=== PATIENT | male | born 1935 | race Caucasian/White ===

== ENCOUNTER 2016-08-25 17:02 | Emergency (ER) | payer OTHER, MEDICARE ==
[~2016-08-25] VITALS: Ht 185.4 cm; Wt 86.2 kg
[2016-08-25 19:44] VITALS: BP 189/83
[2016-08-25] MEDS ORDERED: KEFLEX500 MG PO (20:21)
== END 2016-08-25 20:39 | disposition home or self-care (01) ==
LOC: ER 17:02
DX: S92.591A Other fracture of right lesser toe(s), initial encounter for closed fracture (principal); S91.311A Laceration without foreign body, right foot, initial encounter; F10.99 Alcohol use, unspecified with unspecified alcohol-induced disorder; F32.9 Major depressive disorder, single episode, unspecified; E78.00 Pure hypercholesterolemia, unspecified; Z98.890 Other specified postprocedural states; Z87.891 Personal history of nicotine dependence; W22.8XXA Striking against or struck by other objects, initial encounter; Y93.89 Activity, other specified; Y92.89 Other specified places as the place of occurrence of the external cause; Y99.8 Other external cause status

== ENCOUNTER 2019-09-07 15:34 | Inpatient (IN) | payer OTHER, MEDICARE ==
[~2019-09-07] VITALS: Ht 185.4 cm; Wt 73.1 kg
[~2019-09-07 15:34] MED LIST: KEFLEX500 MG PO
[2019-09-07 15:44] VITALS: BP 160/88
[2019-09-07] MEDS ORDERED: LORAZEPAM 0.50.5 MG PO (16:12)
[2019-09-07] MEDS ORDERED: CELEXA 20 MG TA20 MG PO (16:12)
[2019-09-07] MEDS ORDERED: ZOCOR 20 MG TAB20 M1 PO (16:13)
[2019-09-07 17:03] LABS: ABSOLUTE NEUTROPHILS 9.7 thou/uL (1.4-8.2); BASOPHILS 0.7 % (0.0-2.0); EOSINOPHILS 0.1 % (0.0-3.0); HEMATOCRIT 36.7 % (42.0-52.0); HEMOGLOBIN 12.9 gm/dL (14.0-18.0); LYMPHOCYTES 5.5 % (24.0-44.0); MCH 38.9 pg (26.0-34.0); MCHC 35.2 g/dL (28.0-37.0); MCV 110.4 fL (80.0-100.0); MONOCYTES 6.3 % (1.0-8.0); PLATELET COUNT 217 thou/uL (150-400); POLYS 87.4 % (36.0-66.0); RBC 3.33 mil/uL (4.50-6.00); RDW 16.1 % (10.5-14.5); WBC 11.1 thou/uL (4.0-11.0)
[2019-09-07 17:16] LABS: ANION GAP 7 mmol/L (7-16); BUN 19 mg/dL (7-18); CALCIUM 8.9 mg/dL (8.5-10.1); CHLORIDE 96 mmol/L (98-107); CO2 29 mmol/L (21-32); CREATININE 1.2 mg/dL (0.7-1.3); GLUCOSE 144 mg/dL (74-106); POTASSIUM 3.7 mmol/L (3.5-5.1); SODIUM 132 mmol/L (136-145)
[2019-09-07 17:27] LABS: ALBUMIN 2.9 g/dL (3.4-5.0); MAGNESIUM 1.7 mg/dL (1.8-2.4); SGOT 35 U/L (15-37); SGPT 18 U/L (30-65); TOTAL BILIRUBIN 1.5 mg/dL (0.2-1.0); TOTAL PROTEIN 6.7 g/dL (6.4-8.2); TROPONIN-I <0.06 ng/mL (<0.06)
[2019-09-07 17:44] LABS: URINE BILIRUBIN 1+ (Negative); URINE BLOOD 3+ (Negative); URINE CLARITY CLEAR; URINE COLOR YELLOW; URINE GLUCOSE-RANDOM* 2+ (Negative); URINE KETONES 1+ (Negative); URINE LEUKOCYTES-REFLEX TRACE (Negative); URINE NITRITE-REFLEX NEGATIVE (Negative); URINE PROTEIN (DIPSTICK) 1+ (Negative)
[2019-09-07 17:54] LABS: ICTOTEST (BILI CONFIRMATORY) Negative (Negative)
[2019-09-07 17:56] LABS: CASTS None Seen /LPF (None Seen); CRYSTALS None Seen /LPF (None Seen); SQUAMOUS None Seen /LPF (0-3); URINE WBC-REFLEX 0-5 Rare /HPF (0-5)
[2019-09-07 17:57] LABS: BACTERIA-REFLEX 1-9 Few /HPF (None Seen)
[2019-09-07 20:08] VITALS: BP 175/77
[2019-09-07 20:17] VITALS: BP 152/78
[2019-09-07 21:20] VITALS: BP 150/82
--- NOTE | 2019-09-08 03:36 | NUR ---
PATIENT ARRIVED ON UNIT AT 2030 VIA CART FROM ED, ACCOMPAINED BY ED LILLIAN. PATIENT ALERT AND ORIENTED TO PERSON, PLACE AND TIME BUT CONFUSED ABOUT SITUATION. AT TIMES APPEARS TO BE CONFUSED ABOUT THINGS AND AT TIMES HAS A HARD TIME UNDERSTANDING WHAT IS SAID. IS IONE BUT EVEN WHEN WHAT IS SAID DOES NOT ALWAYS UNDERSTAND. NEED TO REPEAT THINGS SLOWLY. PULLED IV OUT THAT ED PUT IN, REINSERTED WITH THREE TRIES. IS IN RFA. PATIENT IS HIGH FALL RISK D/T MULTIPLE FALLS AT HOME. HAS SEVERAL SMALL SORES ON LOWER L EXT AND ON BACK. HAS AN ABRASION ON FOREHEAD. HAS SEVERAL BRUISES ON ALL EXTS. HAD TO EXPLAIN THE CALL LIGHT TO PATIENT SEVERAL TIMES. KEPT PUSHING BUTTON AND WHEN SOMEONE GOES IN HE NEEDS NOTHING. DENIES PAIN. SLEPT LITTLE THIS SHIFT.
[2019-09-08 07:37] VITALS: BP 155/86
--- NOTE | 2019-09-08 07:45 | EKG ---
[facility] [place] [address] ELECTROCARDIOGRAM REPORT Name: MI GALVEZ Room #: 437-P ADM IN M.R.#: [id number] Admission: 09/07/19 Attend Phys: Cisco Gerard MD Discharge: Date of : 33 Report #: [id number] THIS REPORT FOR: cc: Humberto Gutierrez MD, Rene P. 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: MIKO : 1935 Requested By: Zara Lopes Order Number: [id number] MD: Azael Olvera Measurements Intervals [place] Rate: 66 P: 84 AL: 173 QRS: -15 QRSD: 98 T: -26 QT: 493 QTc: 517 Interpretive Statements Sinus rhythm Septal infarct, age indeterminate Nonspecific ST and T wave abnormality Prolonged QT interval Compared to ECG 12/06/2008 09:42:44 ST and T wave abnormality is now present Q waves now present Prolonged QT interval now present Electronically Signed On 09-08-2019 7:45:03 CDT by Azael Olvera [email or web address] <ELECTRONICALLY SIGNED> By: Azael Olvera MD, [facility] 09/08/19 0745 170 170 Azael Olvera MD, [facility] /EPI
[2019-09-08 11:01] LABS: HEMOGLOBIN 11.9 gm/dL (14.0-18.0); MCH 38.1 pg (26.0-34.0); MCHC 33.9 g/dL (28.0-37.0); MCV 112.4 fL (80.0-100.0); RBC 3.11 mil/uL (4.50-6.00); RDW 15.7 % (10.5-14.5); WBC 7.7 thou/uL (4.0-11.0)
[2019-09-08 11:13] LABS: CALCIUM 8.3 mg/dL (8.5-10.1); POTASSIUM 3.4 mmol/L (3.5-5.1)
[2019-09-08 15:34] VITALS: BP 143/77
--- NOTE | 2019-09-08 17:42 | NUR ---
Case opened for [facility] planning. Line Service Person visited with the pt's son/saul Robledo today along with his other son Ilya from [place] via speaker phone. Both are concerned about the pt returning to indep living apt at [facility] as well as his recent weakness and falls. The pt was admitted d/t failure to thrive, severe malnutrition, ethol w/d, multiple falls and dizzyness. The pt's son reports that the pt was doing fairly well at [facility] and he would go over 3 x wkly to check on him and bring him groceries. The pt drinks burbon daily and smokes an e cigg. The pt is normally able to get around with a rwalker and was a&ox4 and able to manage his own medications. Over the past few months they have not been able to visit the pt due to the covid crisis and visitor restrictions of his [facility] community. They rec'd a call about a month ago indicating that the pt was not bathing and his apt was a mess. They hired [facility] [employer] for a weekly bath aid to come in but were refused entry to the community to be able to check on the pt and clean his apt. The pt's son has been doing his shopping and dropping off at the entrance for him. They indicate that his drinking has been cut back slowly over time but they feel he has gotten more depressed and is not eating due to his wt loss and disshelved appearance. The pt's son indicates that he is talking to the ex director at the [facility] regarding the lack of communication about his fathers decline. The [facility] is not offering activiites and they are bringing all meals to his apt. They found him on the floor twice and called 911 but did not call the family. The pt's sons are going to talk with the director tomorrow and discuss moving the pt into an [facility] apt with more social supports/structure. He is being evaluated by PT/OT. Will ask for ST, 5N eval and psych eval. The pt will likely benefit from either acute rehab or SNF stay while the pt's son f/u with arrangements for a more supportive living situation at [facility]. Support provided. SNF listing emailed to [email or web address] at [email or web address]
--- NOTE | 2019-09-08 18:33 | NUR ---
PT ASSESSED AT START OF SHIFT. ENC TO EAT PT NOT HAVING MUCH APPETITE. THERAPY IN TO WORK W/ PT. SON IN TO SEE FATHER AND HE WAS SUPPRISED TO SEE HIS FATHER SO UNKEMPT AND HAD LOST WEIGHT HE HAS NOT BEEN ABLE TO VISIT HIM AT FACILITY. SON TALKED W/ RN AND CASE MGMT TO GET REHAB FOR [facility] TO ALLOW TO RETURN TO BASELINE. REHAB CONSULT CALLED TO [facility].
[2019-09-08 19:40] VITALS: BP 155/76
[2019-09-08 22:37] VITALS: BP 155/76
--- NOTE | 2019-09-09 03:14 | NUR ---
PT AOX2-3 WITH FORGETFULNESS AND INTERMITTENT CONFUSION. PT REPORTS HEADACHE PAIN. PT RECEIVING PRN PO APAP Q4HR. PT NOTED TO SHIFT INDEPENDENTLY WHILE IN BED. PT WITH GENERALIZED WEAKNESS. PT OBSERVED BY STAFF ATTEMPTING TO GET OUT OF BED, PT DISCONTINUED HIS IV. PT REDIRECTABLE. PT REFUSING NEW IV INSERTION. OLIVE PACKER REGISTERED PHLEBOTOMIST PART TIME NOTIFIED, ENCOURAGED TO ASK AT A LATER TIME. PT TOLERATING PO INTAKE WITHOUT ISSUE. PT ENCOURAGED TO NOTIFY STAFF FOR ALL NEEDS. CALL LIGHT WITHIN REACH, BED IN LOWEST POSITION, BED ALARM ON. WILL CONTINUE TO MONITOR.
[2019-09-09 07:54] VITALS: BP 170/84
--- NOTE | 2019-09-09 14:28 | NUR ---
PATIENT WORKED WITH PT & OT TODAY. REPORTS PAIN MANAGED WITH MEDS ORDERED. OFTEN FORGETFUL AND NEEDS RE-ORIENTATION. NOT IMPULSIVE. FALL PRECAUTIONS IN PLACE.
--- NOTE | 2019-09-09 14:38 | NUR ---
5N evaling and will reasess tomorrow for possible weekend admission; they are uncertain if they can accept. Son updated and SNF options reveiwed. Referral faxed and called to [facility]. They can accept if [facility] declines. They will have a bed tomorrow and RN will need to call [phone] liason cell to make arrangements. Pt's son indicates preferece for [facility] if possible so he can visit regularly and for intensity of therapies. He is awaiting call back from Kirstin Matos regarding [facility] availability and possible move in date this month. Care team updated.
[2019-09-09 15:28] VITALS: BP 133/74
--- NOTE | 2019-09-09 17:01 | NUR ---
FAXED REFERRAL TO [facility] RECEIVED CONFIRMATION AND THE OFFICE IS NOW CLOSED WILL F/U WITH THEM ON THURSDAY PT WILL NOT DC OVER WEEKEND.
[2019-09-09 19:50] VITALS: BP 142/58
[2019-09-10 00:11] VITALS: BP 142/58
[2019-09-10 03:55] VITALS: BP 155/84
--- NOTE | 2019-09-10 05:19 | NUR ---
PT AOX2 WITH FORGETFULNESS AND CONFUSION. PT REPORTS HEADACHE PAIN AND NECK TENDERNESS. PT RECEIVING PRN PO APAP Q4HR. PT NOTED TO BE RESTLESS AND FIDGETY WITH LINES. PT RECEIVING PRN PO ATIVAN Q8HR. PT AMBULATES WITH WALKER AND X1 ASSIST TO BATHROOM, BED, AND CHAIR. PT NOTED TO BE WEAK WITH STEADY GAIT. PT TOLERATING PO INTAKE OF FLUIDS AND REGULAR DIET. PT RESTING IN CHAIR THROUGHOUT SHIFT. PT NOTED TO BE RESTING WITHOUT INTERRUPTION OR OBSERVATION OF PAIN, DISCOMFORT, OR SOB. ENCOURAGED PT TO NOTIFY STAFF FOR ALL NEEDS. CALL LIGHT WITHIN REACH, BED ALARM ON, BED IN LOWEST POSITION. WILL CONTINUE TO MONITOR.
[2019-09-10 07:40] VITALS: BP 168/76
--- NOTE | 2019-09-10 10:24 | NUR ---
ASSUMMED PT CARE AT APPROXIMATELY 0930. PT A&O X3, FORGETFUL. PT COMFORTABLE IN CHAIR. PT DENIES HAVING FURTHER CONCERNS. REPORT RECEIVED FROM RN. STATED UNDERSTANDING AND HAD NO FURTHER QUESTIONS.
[2019-09-10 13:16] VITALS: BP 157/88
[2019-09-10 16:00] VITALS: BP 155/88
[2019-09-10 17:15] LABS: URINE BILIRUBIN NEGATIVE (Negative); URINE BLOOD 3+ (Negative); URINE CLARITY CLEAR; URINE COLOR YELLOW; URINE GLUCOSE-RANDOM* NEGATIVE (Negative); URINE KETONES NEGATIVE (Negative); URINE LEUKOCYTES NEGATIVE (Negative); URINE NITRITE NEGATIVE (Negative); URINE PROTEIN (DIPSTICK) NEGATIVE (Negative); URINE SPECIFIC GRAVITY <= 1.005 (1.005-1.035)
[2019-09-10 17:29] LABS: BACTERIA None Seen /HPF (None Seen); CASTS None Seen /LPF (None Seen); CRYSTALS None Seen /LPF (None Seen); SQUAMOUS 0-3 Few /LPF (0-3); URINE WBC 0-5 Rare /HPF (0-5)
--- NOTE | 2019-09-10 18:32 | NUR ---
ASSUMMED PT CARE AT APPROXIMATELY 0930. PT A&O X3 AND FORGETFUL. REORIENTATION PROVIDED. ASSESSMENT CHARTED. FALL PRECAUTIONS IN PLACE. PT DENIES HAVING CHEST PAIN. PT DENIES HAVING SOB. PT DENIES HAVING ACUTE PAIN. OBTAINED VERBAL AND TELEPHONE ORDER FROM DR. GARVIN STATING PT DOES NOT NEED AN IV. ORDER IMPLEMENTED. PT AMBULATES STEADY X1 ASSIST C WALKER. PT HAD POOR APPETITE. ENCOURAGED PT TO EAT AND DRINK FLUIDS. VITAL SIGNS STABLE. PT UP TO CHAIR THROUGHOUT SHIFT. PT COMFORTABLE. PT DENIES HAVING FURTHER CONCERNS.
[2019-09-10 20:29] VITALS: BP 157/64
--- NOTE | 2019-09-10 23:22 | NUR ---
ASSUMED PT CARE AT 1900. PT IS A&OX3 TONIGHT, WITH SOME FORGETFULNESS/CONFUSION. HE THOUGHT HE WAS IN A HOTEL FOR A MOMENT, AFTER THIS NURSE [facility]ID HOSPITAL, HE SAID "OH THATS RIGHT, IM AT [facility]." VASQUEZ TRIED TO ENCOURAGE PT TO DRINK, BUT HE IS ONLY WILLING TO TAKE A FEW SMALL SIPS. PT INSISTS ON SLEEPING IN THE CHAIR SAYING ITS MORE COMFORTABLE FOR HIM. NO COMPLAINTS AT THIS TIME, WILL CONTINUE TO MONITOR.
[2019-09-11 04:27] VITALS: BP 161/80
[2019-09-11 06:04] LABS: HEMATOCRIT 35.8 % (42.0-52.0); HEMOGLOBIN 12.1 gm/dL (14.0-18.0); MCHC 33.9 g/dL (28.0-37.0); MCV 112.1 fL (80.0-100.0); RBC 3.19 mil/uL (4.50-6.00); RDW 16.2 % (10.5-14.5); WBC 7.1 thou/uL (4.0-11.0)
[2019-09-11 06:25] LABS: POTASSIUM 3.5 mmol/L (3.5-5.1)
[2019-09-11 08:40] VITALS: BP 158/75
--- NOTE | 2019-09-11 11:05 | NUR ---
Assumed patient care at 0715. Vital signs stable, LSCTA, abdomen is soft and non-tender, BS x's 4; he is alert and oriented x's 2-3. He has an abrasion on the top of his forehead (reported from off-going nurse that he has had this since prior to admit). Patient continues to have a poor appetite, states "I am just not hungry." This nurse poured half of his Ensure into a cup and added vanilla ice cream; he enjoyed this. Patient has been drinking pleanty of water. Will continue to encourage patient to eat.
== END 2019-09-11 13:59 | DRG 557 ==
LOC: ER 15:34 → 4S 18:59 → EROBS 18:59 → 4S 20:26
PROVIDERS: Nurse Practitioner Family; ADMIT Hospitalist; ATTEND Hospitalist
DX: M62.84 Sarcopenia (principal); E43 Unspecified severe protein-calorie malnutrition; G93.41 Metabolic encephalopathy; E87.1 Hypo-osmolality and hyponatremia; F10.10 Alcohol abuse, uncomplicated; F32.9 Major depressive disorder, single episode, unspecified; E78.00 Pure hypercholesterolemia, unspecified; E86.0 Dehydration; R29.6 Repeated falls; E80.6 Other disorders of bilirubin metabolism; S00.01XA Abrasion of scalp, initial encounter; W18.39XA Other fall on same level, initial encounter; F41.9 Anxiety disorder, unspecified; E78.5 Hyperlipidemia, unspecified; D53.9 Nutritional anemia, unspecified; G47.00 Insomnia, unspecified; S00.81XA Abrasion of other part of head, initial encounter; H57.02 Anisocoria; Y93.89 Activity, other specified; Z90.89 Acquired absence of other organs; Z87.891 Personal history of nicotine dependence; Z68.21 Body mass index [BMI] 21.0-21.9, adult; Y92.89 Other specified places as the place of occurrence of the external cause; Y99.8 Other external cause status; Z03.818 Encounter for observation for suspected exposure to other biological agents ruled out; Z79.899 Other long term (current) drug therapy
CPT/HCPCS: 10195